=== PATIENT | female | born 1975 | race Two or more races ===

== ENCOUNTER 2023-06-02 23:24 | Emergency (ER) | payer MEDICAID, OTHER ==
[~2023-06-02] VITALS: Ht 152.4 cm; Wt 49.0 kg
[2023-06-02 23:57] LABS: Urine Bacteria FEW /hpf (None Seen); Urine Blood Negative /uL (Negative); Urine Clarity HAZY (Clear); Urine Color Yellow (Yellow); Urine Mucus FEW (None Seen); Urine Protein, UAD TRACE (Negative); Urine Specific Gravity 1.023 (1.001-1.035); Urine Urobilinogen Normal (Negative); Urine WBC 1 /hpf (0 - 5); Urine pH 7.5 (5.0-8.0)
[2023-06-03] MEDS ORDERED: ACET-1304 PO (04:19)
[2023-06-03] MEDS ORDERED: PHEN95TA10 PO (04:19)
[2023-06-03] MEDS ORDERED: CEPH500T PO (04:19)
[2023-06-03] MEDS: CEPHALEXIN 250 MG CAP PO ONE (04:50)
[2023-06-03] MEDS: PHENAZOPYRIDINE HCL 100 MG TAB PO ONE (04:50)
[2023-06-03] MEDS: ACETAMINOPHEN 500 MG TAB PO ONE (04:51)
[2023-06-03 04:56] VITALS: BP 124/80; PULSE 60; RESP 20; TEMP 97.7; O2SAT 99
== END 2023-06-03 04:53 | disposition home or self-care (01) ==
LOC: ER 23:24
DX: N39.0 Urinary tract infection, site not specified (principal); M54.50 Low back pain, unspecified; E78.5 Hyperlipidemia, unspecified; Z79.899 Other long term (current) drug therapy
CPT/HCPCS: 81001

== ENCOUNTER 2024-05-06 14:38 | Inpatient (IN) | payer MEDICAID ==
[~2024-05-06] VITALS: Ht 152.4 cm; Wt 68.3 kg
[~2024-05-06 14:38] MED LIST: ACET-1304 PO; CEPH500T PO; PHEN95TA10 PO
[2024-05-06] MEDS: SODIUM CHLORIDE 0.9% 1,000 ML IV ONE (15:00)
[2024-05-06 15:40] VITALS: RESP 17
[2024-05-06] MEDS: KETOROLAC TROMETH 30 MG/ML 1ML VIAL IV ONE (15:42)
[2024-05-06] MEDS: ONDANSETRON HCL 4 MG/2 ML VIAL IV ONE ×2 (15:43→16:43)
--- NOTE | 2024-05-06 15:49 | ED.PDOC ---
General HPI Comments 48-year-old female presents with a chief complaint of sudden onset left flank pain with associated dysuria and nausea x onset today. Patient very restless and not-cooperating with questioning at this time. Patient repeats that she is in pain and wants medication. Unable to full assess patient at this time. Chief Complaint: Flank Pain Time Seen by MD: 15:48 Primary Care Provider: TESS Branham notes: Medications, Allergies Allergies: Coded Allergies: NO KNOWN ALLERGIES (Unverified , 06/02/23) Home Meds Active Scripts Acetaminophen (Tylenol Extra Strength) 500 Mg Tab, 500 MG PO QIDPRN for 10 Days, #40 TAB Prov:BETO ASIF S DO 06/03/23 Phenazopyridine Hcl (Azo Tabs) 95 Mg Tab, 95 MG PO QIDPRN for 3 Days, #12 TAB Prov:BETO ASIF S DO 06/03/23 Cephalexin Monohydrate (Cephalexin) 500 Mg Tab, 1 TAB PO QID for 7 Days, #28 TAB Prov:BETO ASIF S DO 06/03/23 Information Source: Patient Mode of Arrival: Wheelchair Severity: Moderate Inability to void: None Timing: Minutes Duration: Since onset Has not urinated for: Minutes Prehospital treatment: None Onset: Spontaneous Symptoms: Dysuria Location: (L)Flank Past Medical History PAST MEDICAL HISTORY: High Lipids Past Medical History (Other): Kidney stones Surgical History: Denies all surgeries WOUND CARE TECHNICIAN History: No Pertinent WOUND CARE TECHNICIAN History Family History Family History: Unknown Social History Smoker: Non-Smoker Alcohol: Denies ETOH Use Drugs: Denies Drug Use Constitutional: denies: chills, diaphoresis, fatigue, fever, malaise, sweats, weakness, others EENTM: denies: blurred vision, double vision, ear bleeding, ear discharge, ear drainage, ear pain, ear ringing, eye pain, eye redness, hearing loss, mouth pain, mouth swelling, nasal discharge, nose bleeding, nose congestion, nose pain, photophobia, tearing, throat pain, throat swelling, voice changes, others Respiratory: denies: cough, hemoptysis, orthopnea, SOB at rest, shortness of breath, SOB with excertion, stridor, wheezing, others Cardiovascular: denies: chest pain, dizzy spells, diaphoresis, Dyspnea on exertion, edema, irregular heart beat, left arm pain, lightheadedness, palpitations, PND, syncope, others Gastrointestinal: denies: abdomen distended, abdominal pain, blood streaked bowels, constipated, diarrhea, dysphagia, difficulty swallowing, hematemesis, melena, nausea, poor appetite, poor fluid intake, rectal bleeding, rectal pain, vomiting, others Genitourinary: reports: dysuria, flank pain; denies: abnormal vagina bleeding, burning, dyspareunia, frequency, hematuria, incontinence, pain, , vagina discharge, urgency, others Neurological: denies: dizziness, fainting, headache, left sided numbness, left sided weakness, numbness, paresthesia, pre-existing deficit, right sided numbness, right sided weakness, seizure, speech problems, tingling, tremors, weakness, others Musculoskeletal: denies: back pain, gout, joint pain, joint swelling, muscle pain, muscle stiffness, neck pain, others Integumetry: denies: bruises, change in color, change in hair/nails, dryness, laceration, lesions, lumps, rash, wounds, others Allergic/Immunocompromised: denies: Difficulty Healing, Frequent Infections, Hives, Itching, others Hematologic/Lymphatic: denies: anemia, blood clots, easy bleeding, easy bruising, swollen glands, others Endocrine: denies: excessive hunger, excessive sweating, excessive thirst, excessive urination, flushing, intolerance to cold, intolerance to heat, unexplained weight gain, unexplained weight loss, others Psychiatric: denies: anxiety, bipolar disorder, depression, hopeless, panic disorder, schizophrenia, sleepless, suicidal, others All Other Systems: Reviewed and Negative Physical Exam General Appearance: Severe Distress HEENT: Other (Unremarkable) Neck: Full Range of Motion, Normal Inspection Respiratory: Lungs Clear, No Accessory Muscle Use, No Respiratory Distress, Normal Breath Sounds Cardiovascular: No Edema, No JVD, Regular Rate/Rhythm Breast Exam: Deferred Gastrointestinal: Other (Gestures to the left suprapubic area when asked to localize the pain. Palpation of this area does not increase the pain.) Genitalia: Deferred Pelvic: Deferred Rectal: Deferred Extremities: Normal inspection, Normal range of motion, Non-tender, No pedal edema Neurologic: Alert (Oriented x4), Normal Affect, Normal Mood, Other (Ambulatory without difficulty. No gross focal deficit.) Cerebellar Function: NOT DONE Reflexes: NOT DONE Skin: Dry, Normal Color, Warm Lymphatic: NOT DONE Was a procedure done? Was a procedure done?: No Differential Diagnosis Kidney stone (Female): Ovarian torsion, Pyelonephritis Urinary Problem (Male): Renal Failure, Urethritis, Urinary Retention, Urolithiasis, UTI Urinary Problem (Female): Ectopic , Intrauterine , PID, Other (Colitis, diverticulitis, bowel obstruction, enteritis, among others) X-Ray, Labs, Meds, VS Vital Signs Date Time Temp Pulse Resp B/P (MAP) Pulse Ox O2 Delivery O2 Flow Rate FiO2 05/06/24 16:44 117 16 113/61 (78) 99 05/06/24 16:43 117 16 113/61 05/06/24 16:09 92 16 110/73 (85) 99 05/06/24 15:40 17 Room Air* 0 21 05/06/24 14:50 98.4 90 24 129/91 (104) 98 Lab Test 05/06/24 15:27 05/06/24 14:56 Range/Units White Blood Count 7.3 4.4-10.8 10^3/uL Red Blood Count 4.21 4.0-5.20 10^6/uL Hemoglobin 13.5 12.2-16.2 g/dL Hematocrit 40.8 36.0-46.0 % Mean Corpuscular Volume 96.8 80.0-100.0 fL Mean Corpuscular Hemoglobin 32.1 H 28.0-32.0 pg Mean Corpuscular Hemoglobin Concent 33.2 32.0-36.0 g/dL Red Cell Distribution Width 12.7 11.8-14.3 % Platelet Count 281 140-450 10^3/uL Mean Platelet Volume 8.6 6.9-10.8 fL Neutrophils (%) (Auto) 72.9 37.0-80.0 % Lymphocytes (%) (Auto) 20.4 10.0-50.0 % Monocytes (%) (Auto) 6.3 0.0-12.0 % Eosinophils (%) (Auto) 0.2 0.0-7.0 % Basophils (%) (Auto) 0.2 0.0-2.0 % Neutrophils # (Auto) 5.3 1.6-8.6 10 ^3/uL Lymphocytes # (Auto) 1.5 0.4-5.4 10 ^3/uL Monocytes # (Auto) 0.5 0-1.3 10 ^3/uL Eosinophils # (Auto) 0 0-0.8 10 ^3/uL Basophils # (Auto) 0 0-0.2 10 ^3/uL Nucleated Red Blood Cells 0.1 % Beta HCG, Quantitative 3.9 1.5-4.2 mIU/mL Urine Color Pending Urine Clarity Pending Urine pH Pending Urine Specific [place] Pending Urine Protein Pending Urine Ketones Pending Urine Blood Pending Urine Nitrite Pending Urine Bilirubin Pending Urine Urobilinogen Pending Urine Leukocyte Esterase Pending Urine RBC Pending Urine WBC Pending Urine Squamous Epithelial Cells Pending Urine Bacteria Pending Urine Glucose Pending Current Medications Medications (Trade) Dose Ordered Sig/Krista Route Start Time Stop Time Status Last Admin Ketorolac Tromethamine (Toradol Injection) 30 mg ONCE ONCE IV 05/06/24 15:00 05/06/24 15:22 DC 05/06/24 15:42 Ondansetron HCl (Zofran) 4 mg ONCE ONCE IV 05/06/24 15:00 05/06/24 15:22 DC 05/06/24 15:43 Sodium Chloride 1,000 ml @ 1,000 mls/hr Q1H ONCE IV 05/06/24 15:00 05/06/24 15:59 DC 05/06/24 15:00 Morphine Sulfate 4 mg ONCE ONCE IV 05/06/24 16:45 05/06/24 16:46 DC 05/06/24 16:43 Ondansetron HCl (Zofran) 4 mg ONCE ONCE IV 05/06/24 16:45 05/06/24 16:46 DC 05/06/24 16:43 PROCEDURE(s): ABPL - CT AB PEL WO CON-NO ORAL OR IV REASON: L flank pain h/o kidney stone ORDER NUMBER(s): [id number], ACCESSION NUMBER(s): [id number] CT ABDOMEN AND PELVIS WITHOUT CONTRAST CLINICAL HISTORY: L flank pain h/o kidney stone TECHNIQUE: Multiple contiguous axial images of the abdomen and pelvis without intravenous contrast. The images were reformatted degenerate coronal and sagittal reconstructions. All CT scans at this medical facility are performed using dose modulation tech niques as appropriate to a performed exam including the following:Automated exposure control was utilized; adjustment of the MA and/or KV according to patient size; and use of iterative reconstruction technique. Radiation Dose Information: CT Dose: CTDI volume is 5 mGy. Dose-length product is 260 mGy*cm Comparison: None FINDINGS: Evaluation of the abdomen and pelvis is limited without intravenous contrast. The CT images are degraded by motion artifact. The bladder is decompressed limiting evaluation. There is a 3 mm calculus along the left posterior bladder near the UVJ. There is mild left hydroureter and mild left renal pelviectasis. There is no evidence of a radiopaque renal calculus. There is no right hydronephrosis. The liver, gallbladder, pancreas, adrenal glands, and spleen appear within normal limits. There is no free fluid or free air. The stomach grossly appears unremarkable. The small and large bowel loops demonstrate normal caliber. The abdominal aorta and IVC appear within normal limits. Bladder is decompressed limiting evaluation. Pelvic organ appears within normal limits. There is no gross evidence of a pelvic mass. There is no free fluid collection. Lung bases are clear. There is no acute osseous abnormality. IMPRESSION: 1. Bladder is decompressed limiting evaluation. There is a 3 mm calculus along the posterior bladder near the left UVJ. There is mild left hydroureter mild left renal pelviectasis. HS:Y X-Ray, Labs, Meds, VS Comment 48-year-old female with a history of hypertension and kidney stones complaining of left suprapubic pain Vitals remarkable for respiratory rate of 24, heart rate 117 Exam remarkable for pain localized to the left suprapubic area. Palpation of this area does not change the pain. CT abdomen and pelvis: IMPRESSION: 1. Bladder is decompressed limiting evaluation. There is a 3 mm calculus along the posterior bladder near the left UVJ. There is mild left hydroureter mild left renal pelviectasis. CBC unremarkable, basic metabolic panel pending, UA pending, hCG negative Patient treated with the following in the ED: 1 L 0.9 normal saline IV bolus, Toradol 30 mg IV, Zofran 4 mg IV, morphine 4 mg IV. Patient was still in moderate to severe pain after Toradol and morphine, so fentanyl 50 mcg IV was ordered. Plan is to admit the patient for pain control and urology evaluation. Time of 1ST Reevaluation: 16:18 Reevaluation 1ST: Unchanged Patient Education/Counseling: Diagnosis, Treatment, Prognosis Family Education/Counseling: No Family Present Departure 1 Departure Time of Disposition: 19:24 Impression: Primary Impression: Ureterolithiasis Additional Impression: Intractable abdominal pain Disposition: ADMITTED INPATIENT Admit to: Med Surg Condition: Fair Critical Care Note Critical Care Time?: No Stability Stability form required: No Heart Score Heart Score: Heart Score Response (Comments) Value History N/A 0 EKG N/A 0 Age N/A 0 Risk Factors N/A 0 Troponin N/A 0 Total 0 I personally scribed for EFRAIN PERAZA MD ([email or web address]) on 05/06/24 at 15:49. Electronically submitted by Santos Moreno ([email or web address]). EFRAIN PERAZA MD May 06, 2024 15:49
[2024-05-06 16:03] LABS: Basophils # (auto) 0 10 ^3/uL (0-0.2); Basophils % (auto) 0.2 % (0.0-2.0); Eosinophils # (auto) 0 10 ^3/uL (0-0.8); Eosinophils % (auto) 0.2 % (0.0-7.0); Hematocrit 40.8 % (36.0-46.0); Hemoglobin 13.5 g/dL (12.2-16.2); Lymphocytes # (auto) 1.5 10 ^3/uL (0.4-5.4); Lymphocytes % (auto) 20.4 % (10.0-50.0); Mean Corpuscular Hemoglobin 32.1 pg (28.0-32.0); Mean Corpuscular Hgb Conc. 33.2 g/dL (32.0-36.0); Mean Corpuscular Volume 96.8 fL (80.0-100.0); Monocytes # (auto) 0.5 10 ^3/uL (0-1.3); Monocytes % (auto) 6.3 % (0.0-12.0); Neutrophils # (auto) 5.3 10 ^3/uL (1.6-8.6); Neutrophils % (auto) 72.9 % (37.0-80.0); Nucleated Red Blood Cells % 0.1 %; Platelet Count (auto) 281 10^3/uL (140-450); Red Blood Cells 4.21 10^6/uL (4.0-5.20); Red Cell Distribution Width 12.7 % (11.8-14.3); White Blood Cell 7.3 10^3/uL (4.4-10.8)
[2024-05-06] MEDS: MORPHINE SULFATE 4 MG/ML SYR/VIAL IV ONE (16:43)
--- NOTE | 2024-05-06 16:57 | DVH ---
CT ABDOMEN AND PELVIS WITHOUT CONTRAST CLINICAL HISTORY: L flank pain h/o kidney stone TECHNIQUE: Multiple contiguous axial images of the abdomen and pelvis without intravenous contrast. The images were reformatted degenerate coronal and sagittal reconstructions. All CT scans at this medical facility are performed using dose modulation techniques as appropriate t o a performed exam including the following:Automated exposure control was utilized; adjustment of the MA and/or KV according to patient size; and use of iterative reconstruction technique. Radiation Dose Information: CT Dose: CTDI volume is 5 mGy. Dose-length product is 260 mGy*cm Comparison: None FINDINGS: Evaluation of the abdomen and pelvis is limited without intravenous contrast. The CT images are degra ded by motion artifact. The bladder is decompressed limiting evaluation. There is a 3 mm calculus along the left posterior bl adder near the UVJ. There is mild left hydroureter and mild left renal pelviectasis. There is no evidence of a radiopaque renal calculus. There is no right hydronephrosis. The liver, gallbladder, pancreas, adrenal glands, and spleen appear within normal limits. There is no free fluid or free air. The stomach grossly appears unremarkable. The small and large bowel loops demonstrate normal caliber . The abdominal aorta and IVC appear within normal limits. Bladder is decompressed limiting evaluation. Pelvic organ appears within normal limits. There is no gross evidence of a pelvic mass. There is no free fluid collection. Lung bases are clear. There is no acute osseous abnormality. IMPRESSION: 1. Bladder is decompressed limiting evaluation. There is a 3 mm calculus along the posterior bladder near the left UVJ. There is mild left hydroureter mild left renal pelviectasis. HS:Y
[2024-05-06] MEDS ORDERED: MORPHINE SULFATE INJ 2 MG/ml SYRG IV PRN (19:45)
[2024-05-06] MEDS ORDERED: ACETAMINOPHEN 325 MG TAB PO PRN (19:45)
[2024-05-06] MEDS ORDERED: HYDROcodone-ACET 5/325MG TAB PO PRN (19:45)
[2024-05-06] MEDS ORDERED: ONDANSETRON HCL 4 MG/2 ML VIAL IV PRN (19:45)
[2024-05-06] MEDS ORDERED: TEMAZEPAM 15 MG CAP PO PRN (19:45)
[2024-05-06 19:55] VITALS: PULSE 80; RESP 18; O2SAT 97
[2024-05-06 19:56] VITALS: BP 110/75
[2024-05-06] MEDS: fentaNYL CITRATE 100 MCG/2 ML VL IV ONE (19:56)
[2024-05-06] MEDS: cefTRIAXone 1GM/50ML D5W 50 ML IV ONE (19:57)
[2024-05-06 20:27] LABS: Urine Blood Negative /uL (Negative); Urine Clarity Clear (Clear); Urine Color Yellow (Yellow); Urine Mucus FEW (None Seen); Urine Protein, UAD TRACE (Negative); Urine Specific Gravity 1.028 (1.001-1.035); Urine Squamous Epithelial Cell FEW /hpf (<5); Urine Urobilinogen Normal (Negative); Urine WBC 1 /hpf (0 - 5)
[2024-05-06 20:50] LABS: Urine Bacteria FEW /hpf (None Seen)
--- NOTE | 2024-05-06 20:51 | DVHHP2 ---
History of Present Illness Reason for Visit: Left flank pain History of Present Illness 48-year-old female presents for evaluation of left flank pain. Patient reports a two day history of left-sided flank pain that radiates to her groin. She reports episodes of intermittent chills. No dysuria or hematuria. No other acute complaints reported. Past Medical History Kidney stones and dyslipidemia Past Surgical History Denies Family History Noncontributory Smoke: No ALCOHOL: none Drugs: None Lives: with Family Review of Systems Review of Systems Review of systems are currently negative otherwise addressed in HPI. Allergies: Coded Allergies: NO KNOWN ALLERGIES (Unverified , 06/02/23) Medications Current Medications Medications Dose Ordered Sig/Krista Route Start Time Stop Time Status Last Admin Dose Admin Ceftriaxone Sodium 50 ml @ 100 mls/hr DAILY@09 IV 05/07/24 09:00 Atorvastatin Calcium 10 mg HS PO 05/06/24 22:00 Paroxetine HCl 10 mg DAILY PO 05/07/24 10:00 Gabapentin 100 mg DAILY PO 05/07/24 10:00 Acetaminophen/ Hydrocodone Bitart 1 tab Q4HP PRN PO 05/06/24 19:45 Temazepam 15 mg QHSP PRN PO 05/06/24 19:45 Ondansetron HCl 4 mg Q4HP PRN IV 05/06/24 19:45 Acetaminophen 650 mg Q6HP PRN PO 05/06/24 19:45 Morphine Sulfate 2 mg Q6HPRN PRN IV 05/06/24 19:45 Exam Vital Signs Vital Signs Date Time Temp Pulse Resp B/P (MAP) Pulse Ox O2 Delivery O2 Flow Rate FiO2 05/06/24 19:56 110/75 05/06/24 19:55 80 18 97 05/06/24 15:40 Room Air* 0 21 05/06/24 14:50 98.4 Exam Gen: 48-year-old female in mild distress Skin: Warm, dry, normal color and texture, no rash. HEENT: Normocephalic atraumatic, mucous membranes moist and pink. Neck: Cervical and supraclavicular nodes normal without enlargement, trachea is midline, thyroid gland is normal without masses. Pulmonary: Clear to auscultation and percussion bilaterally. Cardiac: Regular rate and rhythm. No murmur Abdomen: Soft, left CVA tenderness, nondistended, bowel sounds present all 4 quadrants, no guarding, no rigidity, no organomegaly. Extremities: No cyanosis, clubbing, no edema Neuro: Cranial nerves II through XII grossly intact, normal affect and speech, no focal motor deficits. Labs/Xrays ORDERING PHYSICIAN: EFRAIN PERAZA MD PROCEDURE(s): ABPL - CT AB PEL WO CON-NO ORAL OR IV REASON: L flank pain h/o kidney stone ORDER NUMBER(s): [id number], ACCESSION NUMBER(s): [id number] CT ABDOMEN AND PELVIS WITHOUT CONTRAST CLINICAL HISTORY: L flank pain h/o kidney stone TECHNIQUE: Multiple contiguous axial images of the abdomen and pelvis without intravenous contrast. The images were reformatted degenerate coronal and sagittal reconstructions. All CT scans at this medical facility are performed using dose modulation techniques as appropriate to a performed exam including the following:Automated exposure control was utilized; adjustment of the MA and/or KV according to patient size; and use of iterative reconstruction technique. Radiation Dose Information: CT Dose: CTDI volume is 5 mGy. Dose-length product is 260 mGy*cm Comparison: None FINDINGS: Evaluation of the abdomen and pelvis is limited without intravenous contrast. The CT images are degraded by motion artifact. The bladder is decompressed limiting evaluation. There is a 3 mm calculus along the left posterior bladder near the UVJ. There is mild left hydroureter and mild left renal pelviectasis. There is no evidence of a radiopaque renal calculus. There is no right hydronephrosis. The liver, gallbladder, pancreas, adrenal glands, and spleen appear within normal limits. There is no free fluid or free air. The stomach grossly appears unremarkable. The small and large bowel loops demonstrate normal caliber. The abdominal aorta and IVC appear within normal limits. Bladder is decompressed limiting evaluation. Pelvic organ appears within normal limits. There is no gross evidence of a pelvic mass. There is no free fluid collection. Lung bases are clear. There is no acute osseous abnormality. IMPRESSION: 1. Bladder is decompressed limiting evaluation. There is a 3 mm calculus along the posterior bladder near the left UVJ. There is mild left hydroureter mild left renal pelviectasis. HS:Y Labs Test 05/06/24 17:45 05/06/24 15:27 Range/Units Urine Color Yellow Yellow Urine Clarity Clear Clear Urine pH 7.0 5.0-9.0 Urine Specific [place] 1.028 1.001-1.035 Urine Protein Trace H Negative Urine Ketones Negative Negative Urine Blood Negative Negative /uL Urine Nitrite Negative Negative Urine Bilirubin Negative Negative Urine Urobilinogen Normal Negative mg/dL Urine Leukocyte Esterase Negative Negative /uL Urine RBC 3 0 - 4 /hpf Urine WBC 1 0 - 5 /hpf Urine Squamous Epithelial Cells Few <5 /hpf Urine Mucus Few None Seen Urine Glucose Normal Normal mg/dL White Blood Count 7.3 4.4-10.8 10^3/uL Red Blood Count 4.21 4.0-5.20 10^6/uL Hemoglobin 13.5 12.2-16.2 g/dL Hematocrit 40.8 36.0-46.0 % Mean Corpuscular Volume 96.8 80.0-100.0 fL Mean Corpuscular Hemoglobin 32.1 H 28.0-32.0 pg Mean Corpuscular Hemoglobin Concent 33.2 32.0-36.0 g/dL Red Cell Distribution Width 12.7 11.8-14.3 % Platelet Count 281 140-450 10^3/uL Mean Platelet Volume 8.6 6.9-10.8 fL Neutrophils (%) (Auto) 72.9 37.0-80.0 % Lymphocytes (%) (Auto) 20.4 10.0-50.0 % Monocytes (%) (Auto) 6.3 0.0-12.0 % Eosinophils (%) (Auto) 0.2 0.0-7.0 % Basophils (%) (Auto) 0.2 0.0-2.0 % Neutrophils # (Auto) 5.3 1.6-8.6 10 ^3/uL Lymphocytes # (Auto) 1.5 0.4-5.4 10 ^3/uL Monocytes # (Auto) 0.5 0-1.3 10 ^3/uL Eosinophils # (Auto) 0 0-0.8 10 ^3/uL Basophils # (Auto) 0 0-0.2 10 ^3/uL Nucleated Red Blood Cells 0.1 % Beta HCG, Quantitative 3.9 1.5-4.2 mIU/mL Assessment/Plan Assessment/Plan Assessment Obstructive uropathy Left hydroureter Dyslipidemia Plan Admit the patient to [facility] to hospitalist Fabiola Urology consultation Pain management Resume medications Continue treatment per orders. Plan discussed with: Patient My Orders Orders - CARIDAD MYERS Procedure Category Date Status Time * Urology Consult CONS 05/06/24 Transmitted 19:37 Ceftriaxone 1gm/50ml PHA 05/07/24 In Process D5w (Rocephin) 09:00 Atorvastatin (Lipitor) PHA 05/06/24 In Process 22:00 Paroxetine Tablet PHA 05/07/24 In Process (Paxil Tablet) 10:00 Gabapentin Capsule PHA 05/07/24 In Process (Neurontin Capsule) 10:00 Admit ADMIT 05/06/24 Transmitted 19:37 Hydrocodone-Acet PHA 05/06/24 In Process 5/325mg Tab ([place] 19:45 Temazepam (Restoril) PHA 05/06/24 In Process 19:45 Ondansetron Hcl PHA 05/06/24 In Process (Zofran) 19:45 Condition: Stable JUAN FRANCISCO 05/06/24 In Process 19:37 Acetaminophen Tablet PHA 05/06/24 In Process (Tylenol Tablet) 19:45 Bedrest With Bathroom JUAN FRANCISCO 05/06/24 In Process Privileg 19:37 Morphine Sulfate PHA 05/06/24 In Process Injection 19:45 Date of Service: May 06, 2024 Billing Provider: CARIDAD MYERS Common Visit Codes: [id number] INP/OBS CARE (MOD) CARIDAD MYERS May 06, 2024 20:51
[2024-05-06 21:11] LABS: Sodium 142 mmol/L (136-145)
[2024-05-06 21:12] LABS: Anion Gap 13 (5-15); Calcium 9.7 mg/dL (8.7-10.4)
[2024-05-06 21:17] LABS: BUN/Creatinine Ratio 13.2 (10.0-20.0); Blood Urea Nitrogen 10 mg/dL (9-23)
[2024-05-06 21:28] LABS: Carbon Dioxide 17 mmol/L (20-31); Chloride 112 mmol/L (98-107); Glucose 144 mg/dL (74-106)
[2024-05-06] MEDS ORDERED: ATORVASTATIN 20 MG TAB PO SCH (22:00)
[2024-05-07] MEDS ORDERED: cefTRIAXone 1GM/50ML D5W 50 ML IV SCH (09:00)
[2024-05-07] MEDS ORDERED: GABAPENTIN 100 MG CAP PO SCH (10:00)
[2024-05-07] MEDS ORDERED: PARoxetine 20 MG TAB PO SCH (10:00)
== END 2024-05-07 00:25 | disposition left against medical advice (07) | DRG 465 ==
LOC: ER 14:38 → OVERFLOW 19:37
PROVIDERS: ADMIT Nurse Practitioner; ATTEND Nurse Practitioner
DX: N13.2 Hydronephrosis with renal and ureteral calculous obstruction (principal); E78.5 Hyperlipidemia, unspecified; Z53.29 Procedure and treatment not carried out because of patient's decision for other reasons; Z79.899 Other long term (current) drug therapy
CPT/HCPCS: 36415; 74176; 80048; 81001; 84702; 85025; 96361; 96374; 96375; G0378; J1885; J2405